=== PATIENT | female | born 1940 | race Caucasian/White ===

== ENCOUNTER 2016-07-31 11:24 | Emergency (ER) | payer BC ==
[~2016-07-31] VITALS: Wt 62.5 kg
[~2016-07-31 11:24] MED LIST: BENA40TA41 PO; HYD25 PO
--- NOTE | 2016-07-31 13:13 | RADRPT ---
PROCEDURE: CT Brain without. CLINICAL INDICATION: Headache. TECHNIQUE: A CT of the brain was performed on multidetector high-resolution CT scanner utilizing a xial sections from the skull base through the vertex without contrast. The scan was reviewed in sof t tissue brain and high frequency resolution bone algorithm windows. Images were reviewed on a high -resolution PACS workstation. One or more the following does reduction techniques were utilized: Aut omated exposure control, adjustment of the mA/ or kV according to patient's size, or use of iterativ e reconstruction technique. The exam CTDI = 44.90 mGy and the DLP = 630.2 mGy-cm. COMPARISON: None available. FINDINGS: The ventricles and sulci are mildly prominent indicative of volume loss. There is no intracranial he morrhage, mass effect or midline shift. No abnormal intra-axial or extra-axial fluid collections ar e seen. The ivory/white matter differentiation is preserved. There are mild scattered foci of hypoattenuation in the white matter, which are nonspecific in etiol ogy but likely reflect chronic small vessel ischemic changes. Small focal probable old lacunar infar ct is noted in the anterior limb of the right internal capsule. There are mild intracranial vascular calcifications consistent with atherosclerosis. The visualized paranasal sinuses are essentially cl ear. IMPRESSION: 1. No acute intracranial hemorrhage, transcortical infarction or mass effect. 2. Mild intracranial atherosclerosis and chronic small vessel ischemic changes. 3. Small focal probable old lacunar infarct in the anterior limb of the right internal capsule. 4. Mild generalized cerebral volume loss. RPTAT: UU .Carson Jin MD, MD Date Time Electronically viewed and signed by .Carson Jin MD, MD on 07/31/2016 13:13 .N/
[2016-07-31] MEDS ORDERED: MINE3.5O30 LEFT EYE (13:33)
--- NOTE | 2016-07-31 13:39 | ERD ---
ER Documentation Chief Complaint Date/Time DATE: 07/31/16 TIME: 13:36 Chief Complaint REDNESS ON EYES, ELEVATED BP, DIZZINESS, NUMBNESS, NO WEAKNESS HPI 75-year-old female noticed some redness in her left eye today. She also complained of dizziness and pain on the left side of her face after noticing it. She denies any weakness, vomiting, visual changes, bowel bladder incontinence, chest pain or shortness of breath. Patient has a history of high blood pressure. She presents with her daughter. ROS All systems reviewed and are negative except as per history of present illness. Medications Home Meds Active Scripts Mineral Oil/Petrolatum,White (ARTIFICIAL TEARS EYE OINT) 3.5 Gm Oint...g., 1 APPLIC LEFT EYE NEEDED Y for DRY EYES for 14 Days, #1 EA Prov:AVRIL CRUZ MD 07/31/16 Reported Medications Benazepril Hcl* (Benazepril Hcl*) 40 Mg Tablet, 40 MG PO DAILY, #30 TAB 07/25/15 Hydrochlorothiazide* (Hydrochlorothiazide*) 25 Mg Tab, 25 MG PO DAILY, #30 TAB 07/25/15 Allergies Allergies: Coded Allergies: No Known Allergy (Unverified , 07/25/15) PMhx/Soc History of Surgery: Yes (bilateral KNEE SX) Anesthesia Reaction: No Hx Neurological Disorder: No Hx Respiratory Disorders: No Hx Cardiac Disorders: No Hx Psychiatric Problems: No Hx Miscellaneous Medical Probl: No Hx Alcohol Use: No Hx Substance Use: No Hx Tobacco Use: No Smoking Status: Never smoker Physical Exam Vitals Vital Signs Date Time Temp Pulse Resp B/P Pulse Ox O2 Delivery O2 Flow Rate FiO2 07/31/16 11:28 98.3 91 17 176/81 99 Physical Exam Const: [] Alert, [id number]. Head: Atraumatic Eyes: There is a left eye subconjunctival hemorrhage in the inferior lateral aspect. Eyes are PERRLA and extraocular movements intact and no proptosis or abnormal eye movements. ENT: Normal External Ears, Nose and Mouth. Neck: Full range of motion..~ No meningismus. Resp: Clear to auscultation bilaterally Cardio: Regular rate and rhythm, no murmurs Abd: Soft, non tender, non distended. Normal bowel sounds Skin: No petechiae or rashes Back: No midline or flank tenderness Ext: No cyanosis, or edema Neur: Awake and alert Psych: Normal Mood and Affect Procedures/MDM Patient presents with a left subconjunctival hemorrhage. She given her other symptoms to CT brain was performed which showed no acute findings. Discussion with daughter and patient suggests that she was feeling anxious which may be exacerbated additional symptoms upon thinking that she was having a stroke. Patient has no evidence of chest pain, shortness breath or neurologic findings. Patient will be treated with artificial tears and further observation EKG: Rate/Rhythm: [Normal Sinus Rhythm] rate equals 88 QRS, ST, T-waves: [No changes consistent w/ acute ischemia] Impression: [No evidence of ischemia or arrhythmia]. Impression-no acute findings on EKG Patient has elevated blood pressure as well but is taking her blood pressure medicine by report. She will be discharged home instructions for blood pressure follow-up and adjustment of medications if necessary. Patient shows no signs or symptoms to suggest endorgan damage or hypertensive emergency Departure Diagnosis: Primary Impression: Subconjunctival edema of left eye Additional Impression: Hypertension Condition: Stable Patient Instructions: Hypertension, Established, Subconjunctival Hemorrhage Additional Instructions: No acute findings today. See primary doctor for follow-up or for new or worsening symptoms. Recheck blood pressure with primary doctor. AVRIL CRUZ MD Jul 31, 2016 13:39
[2016-07-31 14:01] VITALS: BP 162/75; PULSE 79; RESP 18; TEMP 98.1
== END 2016-07-31 14:02 | disposition home or self-care (01) ==
LOC: FTE 11:24
DX: H11.422 Conjunctival edema, left eye (principal); I10 Essential (primary) hypertension
CPT/HCPCS: 70450; 93005

== ENCOUNTER → 2016-09-12 | Outpatient (CLI) | payer BC ==
[~2016-09-12] MED LIST changes: +MINE3.5O30 LEFT EYE
== END | disposition home or self-care (01) ==
LOC: HKI 10:12
PROVIDERS: ATTEND Orthopaedic Surgery
DX: M25.562 Pain in left knee (principal); M25.561 Pain in right knee; I10 Essential (primary) hypertension; E78.00 Pure hypercholesterolemia, unspecified; Z96.653 Presence of artificial knee joint, bilateral
CPT/HCPCS: G0463

== ENCOUNTER → 2016-10-01 | Outpatient (CLI) | payer BC ==
--- NOTE | 2016-10-01 17:35 | RADRPT ---
PROCEDURE: Left knee radiographs. CLINICAL INDICATION: Left knee pain. TECHNIQUE: Four views. Weight bearing. Frontal, lateral, oblique, and patellar view. COMPARISON: No prior studies are available for comparison. FINDINGS: There is no fracture or dislocation. There is a small joint effusion. There are degenerative changes with osteophytes arising from all 3 joint compartment margins. There is medial joint compartment narrowing, subarticular sclerosis, and deformity. There is no lytic or blastic lesion. There is no radiopaque foreign body. IMPRESSION: 1. Severe degenerative changes of the left knee predominately involving the medial joint compartmen t. RPTAT: QQ .Mickey Johnson MD, MD Date Time Electronically viewed and signed by .Mickey Johnson MD, MD on 10/01/2016 17:35 .R/
--- NOTE | 2016-10-01 17:40 | RADRPT ---
PROCEDURE: Limited x-ray of both lower extremities. CLINICAL INDICATION: Bilateral leg pain. TECHNIQUE: Single frontal view of both lower extremities was obtained from the hips to the calves. COMPARISON: None. FINDINGS: There are degenerative changes of both hips with mild joint space narrowing and osteophytes. There are degenerative changes of both knees with bilateral medial joint compartment narrowing, subarticul ar sclerosis, and deformity. There is bilateral knee varus deformity. IMPRESSION: 1. Moderate degenerative changes of the hips. 2. Severe degenerative changes of the knees with varus deformity. RPTAT: QQ .Mickey Johnson MD, MD Date Time Electronically viewed and signed by .Mickey Johnson MD, MD on 10/01/2016 17:40 .R/
== END | disposition home or self-care (01) ==
LOC: HKI 10:21
PROVIDERS: ATTEND Orthopaedic Surgery
DX: M25.561 Pain in right knee (principal); M17.0 Bilateral primary osteoarthritis of knee
CPT/HCPCS: 73564; 77073; 87081; Z7500; G0463

== ENCOUNTER 2016-10-07 12:16 | Inpatient (IN) | payer BC ==
[~2016-10-07] VITALS: Ht 157.5 cm; Wt 57.0 kg
[2016-10-07] VITALS (27 sets, daily range): BP systolic 134–181; BP diastolic 59–88; PULSE 73–134; RESP 11–25; Ht 157.5 cm; Wt 57.0 kg
[2016-10-07] MEDS: traMADol 50 MG TAB PO SCH ×3 (12:00→23:35)
[~2016-10-07 12:16] MED LIST changes: +DESFLURANE 15 MIN ONE
[2016-10-07] MEDS ORDERED: oxyCODONE (CR) 10 MG TAB [oxyCONTIN] X1 DOSE PO SCH ×2 (13:38→15:00)
[2016-10-07] MEDS ORDERED: CEFAZOLIN 2GM/50 ML (PMX) 50 ML X1 BEFORE INCISION IVPB SCH ×2 (13:38→15:00)
[2016-10-07] MEDS ORDERED: CELECOXIB 400 MG PO X1 DOSE PO SCH ×2 (13:40→15:00)
[2016-10-07] MEDS ORDERED: PREGABALIN 300 MG PO X1 PO SCH ×2 (13:41→15:00)
[2016-10-07] MEDS ORDERED: traMADOL 50 MG TAB X 1 DOSE PO SCH ×2 (13:42→15:00)
[2016-10-07] MEDS ORDERED: ONDANSETRON 4 MG IV X 1 DOSE IV SCH ×2 (13:43→15:00)
[2016-10-07] MEDS ORDERED: NEOSTIGMINE 3 MG/3 ML SYRINGE ONE (13:58)
[2016-10-07] MEDS ORDERED: DEXAMETHASONE 4 MG/ML 1 ML INJ ONE (13:58)
[2016-10-07] MEDS ORDERED: MIDAZOLAM 1 MG/ML 2 ML INJ ONE (13:58)
[2016-10-07] MEDS ORDERED: ROCURONIUM 50 MG INJ ONE (13:58)
[2016-10-07] MEDS ORDERED: ONDANSETRON 4 MG INJ ONE ×2 (13:58→14:04)
[2016-10-07] MEDS ORDERED: FENTAnyl 50 MCG/ML VIAL ONE (13:58)
[2016-10-07] MEDS ORDERED: GLYCOPYRROLATE 0.4 MG INJ ONE (13:58)
[2016-10-07] MEDS ORDERED: CEFAZOLIN 1 GM INJ ONE (13:58)
[2016-10-07] MEDS ORDERED: PROPOFOL 20 ML ONE (13:58)
[2016-10-07] MEDS ORDERED: PROPOFOL 100 ML ONE (13:59)
[2016-10-07] MEDS ORDERED: ETOMIDATE 20 MG INJ ONE (13:59)
[2016-10-07] MEDS ORDERED: LACTATED RINGER'S 1,000 ML IV SCH (15:00)
[2016-10-07] MEDS ORDERED: TRANEXAMIC ACID 590 MG in SOD CHLORIDE 0.9% 94.1 ML IV SCH (15:00)
[2016-10-07] MEDS ORDERED: EXPAREL NOTE (BUPIVICAINE LIPOSOMAL) XX SCH (15:00)
[2016-10-07] MEDS ORDERED: TRANEXAMIC ACID 590 MG in SOD CHLORIDE 0.9% 100 ML IVPB SCH (15:00)
[2016-10-07] MEDS ORDERED: BUPIVACAINE LIPOSOME/PF 266 MG/20 ML VIAL INFIL SCH (15:00)
[2016-10-07] MEDS ORDERED: PAIN COCKTAIL-CEFUROXIME IRR SCH ×7 (15:00)
[2016-10-07] MEDS ORDERED: BACITRACIN 50000 UNITS INJ ONE (15:10)
[2016-10-07] MEDS ORDERED: VANCOMYCIN 1 GM INJ ONE (15:39)
[2016-10-07] MEDS ORDERED: POLYMYXIN B 500000 UNIT INJ ONE (15:39)
[2016-10-07] MEDS ORDERED: SODIUM CL BACTERIOSTATIC 30 ML INJ ONE (15:39)
--- NOTE | 2016-10-07 15:39 | HPN ---
Date/Time of Note Date/Time of Note DATE: 10/07/16 TIME: 15:38 Interval H&P Admission Note Pt. seen H&P reviewed: No system changes No changes from H&P on 09/30/16 by NHUNG Kauffman MD Oct 07, 2016 15:39
[2016-10-07] MEDS ORDERED: ONDANSETRON 4 MG INJ IV PRN ×2 (16:30→18:30)
[2016-10-07] MEDS ORDERED: IPRATROPIUM (NEB) 0.5 MG/2.5 ML AMP HHN PRN (16:30)
[2016-10-07] MEDS ORDERED: OXYCODONE/ACETAMINOPHEN (5/325) TAB PO PRN ×2 (16:30)
[2016-10-07] MEDS ORDERED: TRIMETHOBENZAMIDE 100 MG/ML VIAL IM PRN (16:30)
[2016-10-07] MEDS ORDERED: DIPHENHYDRAMINE 50 MG INJ IV PRN (16:30)
[2016-10-07] MEDS ORDERED: FENTAnyl 50 MCG/ML VIAL IV PRN ×3 (16:30)
[2016-10-07] MEDS ORDERED: HYDROmorphONE (0.2 MG/ML) 10ML SYG IV PRN ×3 (16:30)
[2016-10-07] MEDS ORDERED: ALBUTEROL 0.083% (NEB) 2.5 MG/3 ML AMP HHN PRN (16:30)
[2016-10-07] MEDS ORDERED: hydrALAzine 20 MG INJ IV PRN (16:30)
[2016-10-07] MEDS ORDERED: LABETALOL HCL 20MG INJ IV PRN (16:30)
[2016-10-07] MEDS ORDERED: EPHEDrine SULFATE 50 MG/5 ML SYG IV PRN (16:30)
[2016-10-07] MEDS ORDERED: MEPERIDINE 25 MG INJ IV PRN (16:30)
[2016-10-07] MEDS ORDERED: MIDAZOLAM 1 MG/ML 2 ML INJ IV PRN (16:30)
[2016-10-07] MEDS ORDERED: SUGAMMADEX SODIUM 200 MG/2 ML VIAL IV ONE (17:50)
[2016-10-07] MEDS: LACTATED RINGER'S 1,000 ML IV SCH (18:12)
--- NOTE | 2016-10-07 18:15 | OPR ---
Date/Time of Note Date/Time of Note DATE: 10/07/16 TIME: 18:12 Operative Report Procedure Description DATE: 10/07/2016 PREOPERATIVE DIAGNOSIS: Left knee osteoarthritis POSTOPERATIVE DIAGNOSIS: Left knee osteoarthritis OPERATION PERFORMED: Left total knee arthroplasty. SURGEON: Nhung Deng MD SALES [employer]PERATIONS DIRECTOR: Nathan Dewey PA-C COMPONENTS USED: Depuy Attune size 5 narrow femoral component, size 4 tibial baseplate, 6 mm polyethylene insert, 35 patellar button ANESTHESIA: Spinal plus general endotracheal intubation, plus periarticular injection ANESTHESIOLOGIST: Zaire Monsivais M.D. TOURNIQUET TIME: 52 minutes. ESTIMATED BLOOD LOSS: 50 cc INTRAVENOUS FLUIDS: 2,000 cc crystalloid SPECIMENS: Bone and soft tissue. DRAINS: Hemovac x1. COMPLICATIONS: None. DISPOSITION: The patient tolerated the procedure well and was taken to the recovery room in stable condition. INDICATIONS: The patient is a 76-year-old woman who has had progressively worsening pain in the left knee with radiographic evidence of severe osteoarthritis. She has failed nonsurgical means of treatment to address her pain including activity modifications, pain medications, intra-articular injections, and ambulatory assist devices. Despite these measures she has had worsening pain. I felt the patient would benefit from a total knee arthroplasty. The risks, benefits, and alternatives of the procedure were explained in detail to the patient. I explained the risks of the surgery to include but not be limited to, bleeding and possible need for blood transfusion; infection; pain; stiffness; neurovascular injury with possible numbness, weakness, and/or paralysis anywhere from the knee down to the toes; fracture; instability; dislocation; wear and/or loosening of the prosthesis and possible need for future revision; blood clots; pulmonary embolism; and anesthetic complications such as heart attack, stroke, GI bleed, pneumonia, and/or . Ample time was allowed for the patient to ask questions, all of which were addressed and answered. The patient understood the risks involved and wished to proceed. Informed consent was signed prior to the procedure. PROCEDURE: The patient's left knee was initialed with a marking pen in the preoperative area to identify the correct operative site. The patient was brought to the operating room and transferred from the [facility] to the operating table where a spinal anesthetic was administered. The patient was then anesthetized and intubated. A [place] catheter was placed. A timeout was performed to confirm that the left leg was the correct operative site. The patient was given 2 g of Ancef within one hour prior to the procedure. A tourniquet was placed on the operative proximal thigh. The operative knee and lower extremity were prepped and draped in the usual sterile fashion. The operative lower extremity was elevated and exsanguinated with an Esmarch tourniquet. The proximal thigh tourniquet was inflated to 300 mmHg. The knee was flexed. A midline incision was made and carried down through the subcutaneous tissue and fat with sharp dissection. Limited medial and lateral flaps were raised. A medium parapatellar approach was performed. Synovial fluid was normal in color and consistency. The patella was everted and the knee flexed. There were severe tricompartmental osteoarthritic changes noted. A medial release was performed at the joint line to the midcoronal plane. The ACL and PCL and remnants of the menisci were excised. The stepped drill was used to open up the femoral canal which was irrigated and sucked dry. The intramedullary guide sylvie was passed up the femur, and the distal cutting block was pinned into place for a 6 degree valgus cut, taking 10 mm of bone off distally. The oscillating saw was used to make the cut. The tibia was subluxed anteriorly. The tibial cutoff jig was placed over the center of the talus distally and over the junction of the medial and middle third of the tibial tubercle proximally. The guide was pinned into place and the oscillating saw was used to make the cut. The tibia was sized. The extension gap was checked and accommodated a 6 mm spacer block with the knee in full extension. There was no varus or valgus instability. At this point, the femur was sized with the posterior referencing guide. Two holes were drilled in 3 degrees of external rotation. The two holes were in line with the transepicondylar axis, perpendicular to [place]'s line, and in line with the tibial cutoff jig brought up with the knee flexed 90 degrees and tensed with 2 lamina spreaders, suggesting the femoral rotation was correct. The four-in-one cutting block was pinned into place. The anterior and posterior cuts and chamfer cuts were made with the oscillating saw. The flexion gap was checked and accommodated the 6 mm spacer block at 90 degrees. There was no varus or valgus instability, suggesting the flexion and extension gaps were now equal. The central box was cut out on the femur. The tibia was drilled and punched in proper rotation. Trial components were placed into position with a trial insert. The patella was cut down to 13 mm and sized. Three holes were drilled and the trial button placed in position. With all the trials now in place, the knee was taken through range of motion and came to full extension as evidenced by the fact that with the foot on my abdomen and axial loading, there was no tendency for the knee to flex. The knee was able to be flexed to 125 degrees with good patellar tracking with no lateral tilt or subluxation. At this point, I was satisfied with the overall range of motion, stability, and patellar tracking. The trials were removed. The real components were opened. Two bags of cement were mixed, one with and one without premixed antibiotic. The knee was irrigated with antibiotic saline and sucked dry. Once the cement was in a doughy stage, the real components were cemented into place. The knee was held in full extension, and the patellar component was held with a patellar clamp. All excess cement was removed with curettes. As the cement was hardening, the synovial/capsular layer was infiltrated with a mixture of 150 mg of 0.5% Bupivacaine, 8 mg of Duramorph, 300 mcg of epinephrine, 30 mg of Toradol, 100 mcg of clonidine, 750 mg of cefuroxime and 86 mL of normal saline, followed by an injection of 266 mg of liposomal Bupivacaine. A Hemovac drain was placed in the deep portion of the wound and brought out the anterolateral thigh. Once the cement was completely hardened, the trial liner was removed, and the real insert was opened. The tourniquet was let down, and there was good hemostasis. The knee was then irrigated with a mixture of betadine/saline and then antibiotic saline with pulsatile lavage. The real insert was impacted into the tibia and reduced onto to the femur. The arthrotomy was closed with a few interrupted #1 Ethibond in a figure-of- eight fashion, and then closed in a watertight fashion with a running #2 Stratafix suture. Knee flexion was checked against gravity and came to 125 degrees. The subcutaneous layer was irrigated and closed with 2-0 Statafix, and then 3-0 Vicryl and then vince on the skin. The wound was covered with an occlusive dressing, and secured with cast padding and a bias dressing. The drain was secured with 3-0 nylon. The sponge and needle counts were correct at the end of the case. The patient was then awakened, extubated, and taken to the recovery room in stable condition. NHUNG DENG MD Oct 07, 2016 18:15
--- NOTE | 2016-10-07 18:28 | PN ---
Date/Time of Note Date/Time of Note DATE: 10/07/16 TIME: 18:26 Assessment/Plan Lines/Catheters IV Catheter Type (from Nrsg): Peripheral IV Assessment/Plan Assessment/Plan Stable in PACU, s/p left TKA -continue Ancef -pain meds as needed -ASA/SCDs -OOB with PT -monitor drain -check AM labs -d/c erwin in AM XR of the left knee is pending at this time Subjective 24 Hr Interval Summary Stable in PACU. Denies pain. Drowsy from anesthesia. Moving all extremities. Exam/Review of Systems Vital Signs Vitals Vital Signs Date Time Temp Pulse Resp B/P Pulse Ox O2 Delivery O2 Flow Rate FiO2 10/07/16 14:02 97.7 85 18 143/76 98 Room Air Exam Free Text/Dictation Hemovac: minimal Dressing dry Incision clean, dry, and intact without redness or drainage Thigh soft 5/5 Quadriceps, Tibialis Anterior, EHL, Gastroc, Soleus, Peroneals Normal sensation Palpable DT/PT, CR <2 sec No distal edema BRANDON LIVINGSTON PA-C Oct 07, 2016 18:27
[2016-10-07] MEDS ORDERED: CELECOXIB 200 MG CAP PO SCH (18:30)
[2016-10-07] MEDS ORDERED: PREGABALIN 100 MG CAP PO SCH (18:30)
[2016-10-07] MEDS ORDERED: traMADol 50 MG TAB PO SCH (18:30)
[2016-10-07] MEDS ORDERED: CEFAZOLIN 2 GM/50 ML (PMX) 50 ML IVPB SCH (18:30)
[2016-10-07] MEDS ORDERED: NA PHOSPHATE/BIPHOS 133 ML ENEMA PR PRN (18:30)
[2016-10-07] MEDS ORDERED: ONDANSETRON 4 MG INJ IV SCH (18:30)
[2016-10-07] MEDS ORDERED: DIPHENHYDRAMINE 25 MG CAP PO PRN (18:30)
[2016-10-07] MEDS ORDERED: HYDROCODONE/APAP (7.5/325) TAB PO PRN (18:30)
[2016-10-07] MEDS ORDERED: BISACODYL 10 MG SUPP PR PRN (18:30)
[2016-10-07] MEDS ORDERED: NACL 0.9% 3 ML SYG IV SCH (18:30)
[2016-10-07] MEDS ORDERED: HYDROmorphONE 1 MG/ML SYG IV PRN (18:30)
[2016-10-07] MEDS ORDERED: oxyCODONE (CR) 10 MG TAB [oxyCONTIN] PO SCH (18:30)
[2016-10-07] MEDS ORDERED: ASPIRIN (EC) 325 MG TAB PO ONE (18:30)
[2016-10-07 18:34] LABS: HEMATOCRIT 30.7 % (37.0-47.0); HEMOGLOBIN 10.2 g/dl (12.0-16.0)
[2016-10-07 18:49] LABS: ADD UMIC YES; UR ASCORBIC ACID NEGATIVE (NEGATIVE); UR BILIRUBIN (Dip) NEGATIVE (NEGATIVE); UR BLOOD (Dip) 1+ mg/dL (NEGATIVE); UR CLARITY CLEAR (CLEAR); UR COLOR YELLOW (YELLOW); UR GLUCOSE (Dip) NEGATIVE (NEGATIVE); UR KETONES (Dip) NEGATIVE (NEGATIVE); UR LEUKOCYTE ESTERASE (Dip) NEGATIVE Leu/ul (NEGATIVE); UR NITRITE (Dip) NEGATIVE (NEGATIVE); UR RBC 7 /HPF (0-5); UR SPECIFIC GRAVITY (Dip) 1.017 (1.003-1.030); UR TOTAL PROTEIN (Dip) 1+ mg/dl (NEGATIVE); UR UROBILINOGEN (Dip) NEGATIVE (NEGATIVE)
--- NOTE | 2016-10-07 18:58 | RADRPT ---
PROCEDURE: XR Knee. CLINICAL INDICATION: Postop TECHNIQUE: AP and lateral views of the left knee are available for review. COMPARISON: None available FINDINGS: A cemented left total knee arthroplasty is present in near anatomic alignment without acute radiogra phic abnormality. Recent surgical changes seen in the soft tissues. IMPRESSION: 1. Total knee arthroplasty in near anatomic alignment without acute radiographic abnormality RPTAT: UU .Parmjit Shipley MD, MD Date Time Electronically viewed and signed by .Parmjit Shipley MD, on 10/07/2016 18:57 .d/
[2016-10-07 19:02] LABS: CALCIUM 8.9 mg/dl (8.4-10.2); CREATININE 0.94 mg/dl (0.44-1.00)
[2016-10-07] MEDS ORDERED: POTASSIUM CHLORIDE (SR) 20 MEQ TAB PO STA (19:05)
[2016-10-07] MEDS: CEFAZOLIN 2 GM/50 ML (PMX) 50 ML IVPB SCH (19:34)
[2016-10-07] MEDS: ASPIRIN (EC) 325 MG TAB PO SCH (19:35)
[2016-10-07] MEDS ORDERED: TRANEXAMIC ACID 570 MG in SOD CHLORIDE 0.9% 100 ML IVPB ONE (21:30)
[2016-10-07] MEDS: DOCUSATE SODIUM 100 MG CAP PO SCH (22:03)
[2016-10-07] MEDS: PREGABALIN 50 MG CAP PO SCH (22:03)
[2016-10-08 00:18] VITALS: BP 134/63; RESP 18
[2016-10-08 00:30] VITALS: BP 132/63; PULSE 72; RESP 16
[2016-10-08] MEDS ORDERED: TRANEXAMIC ACID 570 MG in SOD CHLORIDE 0.9% 100 ML IVPB ONE (00:30)
[2016-10-08] MEDS: LACTATED RINGER'S 1,000 ML IV SCH ×3 (01:18→18:12)
[2016-10-08] MEDS: CEFAZOLIN 2 GM/50 ML (PMX) 50 ML IVPB SCH ×2 (03:02→12:12)
[2016-10-08 04:14] VITALS: BP 135/60; RESP 18
[2016-10-08 05:15] LABS: HEMATOCRIT 29.1 % (37.0-47.0); HEMOGLOBIN 9.4 g/dl (12.0-16.0)
[2016-10-08 05:45] LABS: CALCIUM 8.9 mg/dl (8.4-10.2); CREATININE 0.87 mg/dl (0.44-1.00); POTASSIUM 4.1 mmol/L (3.5-5.1)
[2016-10-08] MEDS: PANTOPRAZOLE (EC) 40 MG TAB PO SCH ×2 (05:55→17:43)
[2016-10-08] MEDS: traMADol 50 MG TAB PO SCH ×3 (05:55→17:43)
--- NOTE | 2016-10-08 07:21 | PDOCDIS ---
Discharge Instructions DIAGNOSIS Discharge Diagnosis s/p left TKA CONDITION Patient Condition: Good HOME CARE INSTRUCTIONS: Diet Instructions: Regular ACTIVITY: Activity Restrictions: Slowly Increase Activity Rest between Activity Avoid heavy lifting Do not operate Machinery Do not operate Power Tool Avoid Heavy Housework Keep Limb Elevated Bathing Restrictions: Shower FOLLOW UP/APPOINTMENTS Follow-up Plan follow up in the office on 10/17/16 OTHER ORDERS: Other Orders: S/P TKA Physical Therapy: Three times per week at home x 2 weeks Daily in Rehab/SNF WB STATUS: WBAT 1. Strengthening exercises for both upper and un-operated lower extremities. 2. Gait training with front wheeled walker 3. Active range of motion exercises to operative knee. 4. When not working on knee range of motion exercises, distal towel roll under operative ankle/distal calf to promote full extension. 5. DO NOT PUT ANYTHING BEHIND OPERATIVE KNEE!!! 6. Quadriceps and hamstring strengthening. 7. May switch to cane in contra lateral hand 6 weeks after surgery. 8. Physical Therapy can open case if nursing is not available. 9. Use Ice Machine as instructed from date of surgery while at rest 3X/day. 10. Patient requires mobile SCDs to reduce risk of developing DVT following TKA. Patient will use the mobile SCDs for 30 days postoperatively. Bathing assistance by home health aide twice weekly if Medicare patient. Occupational Therapy: Evaluation for assistive devices and ADL training. Wound Care: Keep incision dry & covered with Tegaderm until first visit with Dr. Ozuna Anticoagulation Orders: Enteric Coated Aspirin 325 mg po bid x 6 weeks from date of surgery Follow-up:Call for an appointment with Dr. Ozuna in 1 week after discharged from hospital at DME Orders: FWAdina, 3-in-1 Commode, Polar ice machine, Mobile SCDs BRANDON LIVINGSTON PA-C Oct 08, 2016 07:21
[2016-10-08] MEDS ORDERED: ASPI325T32 PO (07:23)
[2016-10-08] MEDS ORDERED: PANT40TA4 PO (07:23)
[2016-10-08] MEDS ORDERED: PREG50CA PO (07:23)
[2016-10-08] MEDS ORDERED: TRAM50TA2 PO (07:23)
[2016-10-08] MEDS ORDERED: HYDR-3605 PO (07:23)
[2016-10-08 07:31] VITALS: BP 140/68; RESP 18
--- NOTE | 2016-10-08 08:35 | PN ---
Date/Time of Note Date/Time of Note DATE: 10/08/16 TIME: 08:34 Assessment/Plan Lines/Catheters IV Catheter Type (from Nrsg): Peripheral IV Spain in Place (from Nrsg): Yes Assessment/Plan Assessment/Plan Stable POD #1, s/p left TKA -d/c Ancef -pain meds as needed -ASA/SCDs -OOB with PT -drain removed -check AM labs -d/c planning. Will plan to go home upon discharge Subjective 24 Hr Interval Summary No acute overnight events. Denies significant pain. H&H stable. VSS, afebrile. Will plan to go home upon discharge. Exam/Review of Systems Vital Signs Vitals Vital Signs Date Time Temp Pulse Resp B/P Pulse Ox O2 Delivery O2 Flow Rate FiO2 10/08/16 07:31 97.7 70 18 140/68 100 10/08/16 00:30 Nasal Cannula 2.0 Intake and Output 10/07/16 10/07/16 10/08/16 14:59 22:59 06:59 Intake Total 2240 ml 1662 ml Output Total 550 ml 1000 ml Balance 1690 ml 662 ml Exam Free Text/Dictation Hemovac: 150cc Dressing dry Incision clean, dry, and intact without redness or drainage Thigh soft 5/5 Quadriceps, Tibialis Anterior, EHL, Gastroc, Soleus, Peroneals Normal sensation Palpable DT/PT, CR <2 sec No distal edema Results Result Diagram: 10/08/1643010/08/16430 BRANDON LIVINGSTON PA-C Oct 08, 2016 08:35
[2016-10-08] MEDS: DOCUSATE SODIUM 100 MG CAP PO SCH ×2 (08:36→20:03)
[2016-10-08] MEDS: HYDROCHLOROTHIAZIDE 25 MG TAB PO SCH (08:36)
[2016-10-08] MEDS: BENAZEPRIL 40 MG TAB PO SCH (08:37)
[2016-10-08] MEDS: PREGABALIN 50 MG CAP PO SCH ×2 (08:37→20:04)
[2016-10-08 09:31] LABS: ADD UMIC YES; UR ASCORBIC ACID NEGATIVE (NEGATIVE); UR BACTERIA FEW /HPF (NONE SEEN); UR BILIRUBIN (Dip) NEGATIVE (NEGATIVE); UR BLOOD (Dip) 2+ mg/dL (NEGATIVE); UR CLARITY CLEAR (CLEAR); UR COLOR STRAW (YELLOW); UR GLUCOSE (Dip) NEGATIVE (NEGATIVE); UR KETONES (Dip) NEGATIVE (NEGATIVE); UR LEUKOCYTE ESTERASE (Dip) NEGATIVE Leu/ul (NEGATIVE); UR NITRITE (Dip) NEGATIVE (NEGATIVE); UR RBC 5 /HPF (0-5); UR SPECIFIC GRAVITY (Dip) 1.008 (1.003-1.030); UR TOTAL PROTEIN (Dip) NEGATIVE (NEGATIVE); UR UROBILINOGEN (Dip) NEGATIVE (NEGATIVE)
--- NOTE | 2016-10-08 11:38 | CONS ---
Date/Time of Note Date/Time of Note DATE: 10/08/16 TIME: 11:28 Assessment/Plan Assessment/Plan Chief Complaint/Hosp Course 1. Osteoarthritis, status post left total knee arthroplasty, POD #1. -Postoperative antibiotics, pain control and anticoagulation per surgery. 2. Essential hypertension. Stable. -Continue current antihypertensives. 3. Dyslipidemia. -On statin. Obtain LFTs for baseline. 4. Systolic murmur. Rule out valvular disorders. Of note, patient denied any history of cardiac valve disorders. -Obtain 2D echocardiogram and consider cardiology consult if indicated. -Obtain 12-lead EKG. 5. Anemia, chronic versus postoperative. -Obtain iron panel and treat accordingly. No indication for transfusion as H&H remained stable at this time. Plan: Follow-up with 2D echocardiogram and consider cardiology if indicated. We will also proceed with baseline labs including TSH, A1c, lipid panel and liver function tests. Continue current antihypertensive regimen and adjust dose as indicated. Thank you for allowing us to partake in the care of this pleasant lady. If you have any questions, please call us at extension [phone]. Approximately 60 minutes was spent on this consultation. Case discussed with Dr. Feliciano Problems: Consultation Date/Type/Reason Admit Date/Time Oct 07, 2016 at 12:16 Hx of Present Illness This is a 76-year-old female with a past medical history of hypertension, dyslipidemia, knee osteoarthritis, hysterectomy who was admitted for elective left total knee arthroplasty and hospitalist was consulted for internal medicine management. Patient is postop day #1. She denied chest pain, palpitation, shortness of breath, nausea, vomiting, abdominal pain or any bleeding symptoms. Pain is controlled at this time. No fever or chills. Available labs showed hemoglobin 9.4, hematocrit 29.1. BMP within acceptable range. Urine analysis negative for any infection. Vital signs with blood pressure 140/68 within acceptable range. A 12 point review of system was assessed and is negative other than what is mentioned in HPI. Past Medical History See HPI Past Surgical History See HPI Social History See HPI Smoking Status: Never smoker Exam/Review of Systems Vital Signs Vitals Vital Signs Date Time Temp Pulse Resp B/P Pulse Ox O2 Delivery O2 Flow Rate FiO2 10/08/16 07:31 97.7 70 18 140/68 100 10/08/16 00:30 Nasal Cannula 2.0 Intake and Output 8/10/1610/07/16 10/08/16 15:00 23:00 07:00 Intake Total 2340 ml 1562 ml Output Total 550 ml 1000 ml Balance 1790 ml 562 ml Exam General: Well developed,adequately built, not in any acute distress . HEENT: Normocephalic, Atraumatic, No laceration or hematoma; Eyes: PEERL, Conjunctiva clear, Anicteric sclera Neck: Supple without any lymphadenopathy, nontender, no JVD, no carotid bruits, trachea midline, no thyromegaly Cardiac: SSystolic murmur grade V/ heard at right and left second ICS and mid clavicular line. regular rhythm and rate Pulmonary: Normal respiratory effort. Chest clear to auscultation bilaterally, no adventitious breath sounds GI: Abdomen normal to inspection. Soft, non tender, non- distended, no masses, no rebound tenderness or guarding. Bowel sounds active on all four quadrants Genitourinary: Deferred Extremities: Left knee with dressing intact. No cyanosis, clubbing, or edema. Pulses [2+] bilaterally. Range of motion decreased on left lower extremity. No focal weakness appreciated. Neurologic: Alert to person, place, time, and situation. Affect appropriate, intact sensation. Skin: Clean,dry, and intact. No ecchymosis, no rashes, or lesions Results Result Diagram: 10/08/16 0431 10/08/16 0431 Results 24 hrs Laboratory Tests Test 10/07/16 18:11 10/07/16 18:22 10/08/16 04:31 10/08/16 06:15 Urine Color YELLOW STRAW Urine Clarity CLEAR CLEAR Urine pH 5.0 6.0 Urine Specific [place] 1.017 1.008 Urine Ketones NEGATIVE NEGATIVE Urine Nitrite NEGATIVE NEGATIVE Urine Bilirubin NEGATIVE NEGATIVE Urine Urobilinogen NEGATIVE NEGATIVE Urine Leukocyte Esterase NEGATIVE NEGATIVE Urine Microscopic RBC 7 H 5 Urine Microscopic WBC 1 0 Urine Hemoglobin 1+ H 2+ H Urine Glucose NEGATIVE NEGATIVE Urine Total Protein 1+ H NEGATIVE Hemoglobin 10.2 L 9.4 L Hematocrit 30.7 L 29.1 L Sodium Level 143 143 Potassium Level 3.0 L 4.1 Chloride Level 103 100 Carbon Dioxide Level 26 29 Anion Gap 17 H 18 H Blood Urea Nitrogen 14 15 Creatinine 0.94 0.87 Glucose Level 155 156 Calcium Level 8.9 8.9 Urine Bacteria FEW A Medications Medications Current Medications Miscellaneous Information 1 ea NOTE XX ; Start 10/07/16 at 15:00; Stop 10/10/16 at 15:01 Benazepril HCl (Lotensin) 40 mg DAILY PO Last administered on 10/08/16 08:37; Admin Dose 40 MG; Start 10/08/16 at 09:00 Hydrochlorothiazide (Hydrochlorothiazide) 25 mg DAILY PO Last administered on 08:36; Admin Dose 25 MG; Start 10/08/16 at 09:00 Oxycodone HCl (Oxycontin) 10 mg PRE-OP PO ; Start 10/07/16 at 18:30 Pregabalin (Lyrica) 300 mg PRE-OP PO ; Start 10/07/16 at 18:30 Celecoxib (Celebrex) 400 mg PRE-OP PO ; Start 10/07/16 at 18:30 Tramadol HCl (Ultram) 50 mg PRE-OP PO ; Start 10/07/16 at 18:30 Ondansetron HCl 4 mg 4 mg PRE-OP IV Last administered on 10/07/16 20:20; Admin Dose 4 MG; Start 10/07/16 at 18:30 Cefazolin Sodium/ Dextrose 50 ml @ 100 mls/hr PRE-OP IVPB ; Start 10/07/16 at 18 :30 Lactated Ringer's (Lr) 1,000 ml @ 125 mls/hr Q8H IV Last administered on 05:55; Admin Dose 125 MLS/HR; Start 10/07/16 at 18:12 Tramadol HCl (Ultram) 50 mg Q6 PO Last administered on 10/08/16 05:55; Admin Dose 50 MG; Start 10/07/16 at 12:00; Stop 10/10/16 at 11:59 Hydromorphone HCl (Dilaudid) 1 mg Q3H PRN IV PAIN LEVEL 8-10; Start 10/07/16 at 18:30 Ondansetron HCl (Zofran Inj) 4 mg Q6H PRN IV NAUSEA AND/OR VOMITING; Start 10/07 at 18:30 Bisacodyl (Dulcolax Supp) 10 mg Q12H PRN [place] CONSTIPATION; Start 10/07/16 at 18: 30 Magnesium Hydroxide (Milk Of Mag) 30 ml BID PRN PO CONSTIPATION; Start 10/07/16 at 18:30 Sodium Biphosphate/ Sodium Phosphate (Fleet Enema) 133 ml DAILY PRN [place] CONSTIPATION; Start 10/07/16 at 18:30 Docusate Sodium (Colace) 100 mg BID PO Last administered on 10/08/16 08:36; Admin Dose 100 MG; Start 10/07/16 at 21:00 Diphenhydramine HCl (Benadryl) 25 mg Q6H PRN PO PRURITUS; Start 10/07/16 at 18: 30 Acetaminophen/ Hydrocodone Bitart ([place] (7.5-325)) 1 tab Q4H PRN PO PAIN LEVEL 1-3; Start 10/07/16 at 18:30 Acetaminophen/ Hydrocodone Bitart ([place] (7.5-325)) 2 tab Q4H PRN PO PAIN LEVEL 4-7; Start 10/07/16 at 18:30 Aspirin (Ecotrin) 325 mg BID PO Last administered on 10/07/16 19:35; Admin Dose 325 MG; Start 10/08/16 at 09:00 Pantoprazole (Protonix Tab) 40 mg BID@06,18 PO Last administered on 10/08/16 05 :55; Admin Dose 40 MG; Start 10/08/16 at 06:00 Pregabalin 50 mg 50 mg BID PO Last administered on 10/08/16 08:37; Admin Dose 50 MG; Start 10/07/16 at 21:00 Cefazolin Sodium/ Dextrose (Ancef 2 Gm/50 ml (Pmx)) 50 ml @ 100 mls/hr Q8H IVPB Last administered on 10/08/16 03:02; Admin Dose 100 MLS/HR; Start 10/07/16 at 19:30; Stop 10/08/16 at 11:59 GUILLE MARSH NP Oct 08, 2016 11:38
[2016-10-08 15:26] VITALS: BP 121/57; RESP 20
--- NOTE | 2016-10-08 15:49 | RADRPT ---
Echocardiogram Report Patient Name: MATT OROZCO Gender: Female Date: 1940 Study Date: 08-Oct-2016 Wet Process Miller: Marques Colindres [facility] Location: [id number] Ref. Physician: GUILLE MARSH Quality: Adequate Procedures: Transthoracic echocardiogram with complete 2D, M-Mode, and doppler examination. Indications: Rule out MR/AR. Grade V/ left ICS/right ICS. 2D/M Mode Doppler Measurement Value Normal Ranges Measurement Value Normal Ranges LVIDd 2D 3.4 3.5 - 5.6 cm RAE Vmax 0.7 cm2 LVIDs 2D 1.9 2.1 - 4.1 cm RAE VTI 0.7 cm2 LVPWd 2D 0.9 0.6 - 1.1 cm MV E Peak Cale 0.7 m/sec IVSd 2D 1.0 0.6 - 1.1 cm MV A Peak [place]ale 0.9 m/sec AoR Diam 2D 2.8 2.0 - 3.7 cm MV E/A 0.7 EDV 2D 46.1 cm3 MV Decel Time 132 msec ESV 2D 6.6 cm3 MV Decel [place] 5 LA Dimen 2D 3.5 2.3 - 4.0 cm MV E/A 0.7 LVOT Diam 2.0 cm TR Peak [place]ale 2.1 m/sec TR Peak PG 17.8 mmHg RVSP 26.0 mmHg Findings Left Ventricle: Normal left ventricular systolic function. Normal left ventricular cavity size. Normal left ventricular wall thickness. Ejection fraction is visually estimated at 6065 %. Tissue Doppler/Mitral Doppler indices are consistent with impaired relaxation (Stage I diastolic dysfunction). Right Ventricle: Normal right ventricular size. Normal right ventricular systolic function. Left Atrium: The left atrium is normal in size. Right Atrium: The right atrium is normal in size. Mitral Valve: Mitral valve leaflets appear mildly thickened. Mild mitral annular calcification. Trace mitral regurgitation. Aortic Valve: Severe aortic stenosis. Aortic valve Max velocity 4.40 m/sec. Max PG 77.30 mmHg. Mean PG 45.20 mmHg. Aortic valve area 0.90 cm2. Aortic cusps appear severely calcified. No aortic regurgitation. Tricuspid Valve: Normal appearance of the tricuspid valve. Estimated peak PA systolic pressure 26 mmHg. There is mild tricuspid regurgitation. Pulmonic Valve: Pulmonic valve not well visualized. Pericardium: Normal pericardium with no significant pericardial effusion. Aorta: Normal aortic root. IVC: Dilated IVC with respiratory collapse consistent with elevated right atrial pressure. Conclusions 1.Normal left ventricular systolic function. Normal left ventricular cavity size. Normal left ventricular wall thickness. Ejection fraction is visually estimated at 60-65 %. Tissue Doppler/Mitral Doppler indices are consistent with impaired relaxation (Stage I diastolic dysfunction). 2.Mitral valve leaflets appear mildly thickened. Mild mitral annular calcification. Trace mitral regurgitation. 3.Severe aortic stenosis. Aortic valve Max velocity 4.40 m/sec. Max PG 77.30 mmHg. Mean PG 45.20 mmHg. Aortic valve area 0.90 cm2. Aortic cusps appear severely calcified. No aortic regurgitation. 4.Normal appearance of the tricuspid valve. Estimated peak PA systolic pressure 26 mmHg. There is mild tricuspid regurgitation. Electronically Signed By: Cristino Cosme 08-Oct-2016 15:48:20 -0700 Patient Name: MATT OROZCO Study Date: 08-Oct-2016 [id number]
[2016-10-08] MEDS: ASPIRIN (EC) 325 MG TAB PO SCH (20:04)
[2016-10-08] MEDS: HYDROCODONE/APAP (7.5/325) TAB PO PRN (20:07)
[2016-10-08 20:58] VITALS: BP 155/74; RESP 19
[2016-10-09] MEDS: LACTATED RINGER'S 1,000 ML IV SCH ×3 (02:12→15:58)
[2016-10-09 02:40] VITALS: BP 119/72; RESP 20
[2016-10-09 05:12] LABS: HEMATOCRIT 25.7 % (37.0-47.0); HEMOGLOBIN 8.4 g/dl (12.0-16.0)
[2016-10-09] MEDS: PANTOPRAZOLE (EC) 40 MG TAB PO SCH ×2 (05:22→17:35)
[2016-10-09] MEDS: traMADol 50 MG TAB PO SCH ×4 (05:22→17:36)
[2016-10-09 05:40] LABS: ALBUMIN 3.1 g/dl (3.3-4.9); BILIRUBIN,INDIRECT 0.2 mg/dl (0-1.1); BILIRUBIN,TOTAL 0.2 mg/dl (0.2-1.3); IRON 11 ug/dl (35-150); TOTAL PROTEIN 5.7 g/dl (6.1-8.1)
[2016-10-09 05:42] LABS: CALCIUM 8.8 mg/dl (8.4-10.2); CREATININE 0.97 mg/dl (0.44-1.00); POTASSIUM 4.1 mmol/L (3.5-5.1)
[2016-10-09 05:45] LABS: CHOL/HDL RATIO 2.9 RATIO
[2016-10-09 05:49] LABS: TOTAL IRON BINDING CAPACITY 217 ug/dl (241-421)
[2016-10-09 06:10] LABS: THYROID STIMULATING HORMONE 1.6 MIU/L (0.465-4.680)
[2016-10-09 08:45] VITALS: BP 138/61; RESP 16
--- NOTE | 2016-10-09 09:06 | PN ---
Date/Time of Note Date/Time of Note DATE: 10/09/16 TIME: 09:02 Assessment/Plan VTE Prophylaxis VTE Prophylaxis Intervention: SCD's Lines/Catheters IV Catheter Type (from [facility], [place] Saline Lock Urinary Cath still in place: Yes Reason Cath still needed: other (indicate) Assessment/Plan Chief Complaint/Hosp Course 1. Osteoarthritis, status post left total knee arthroplasty, POD #2. -Postoperative antibiotics, pain control and anticoagulation per surgery. 2. Essential hypertension. Stable. -Continue current antihypertensives. 3. Dyslipidemia. -On statin. 4. Severe aortic stenosis. -Obtain cardiology consult and follow-up recommendation. 5. 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 -Start IV iron 3 doses followed by oral iron replacement. No indication for transfusion as H&H remained stable at this time. Plan: Recommend holding DC planning until patient has been evaluated by cardiology. Continue current postoperative management. Thank you for allowing us to partake in the care of this pleasant lady. If you have any questions, please call us at extension [phone]. Case discussed with Dr. Feliciano Problems: Subjective 24 Hr Interval Summary Free Text/Dictation Patient with no acute overnight episodes. Remains afebrile. No chest pain, palpitation, shortness of breath, headache, dizziness or other constitutional symptoms. Exam/Review of Systems Vital Signs Vitals Vital Signs Date Time Temp Pulse Resp B/P Pulse Ox O2 Delivery O2 Flow Rate FiO2 10/09/16 08:45 98.4 87 16 138/61 98 10/08/16 00:30 Nasal Cannula 2.0 Intake and Output 10/08/16 10/08/16 10/09/16 15:00 23:00 07:00 Intake Total 2462 ml 1000 ml Balance 2462 ml 1000 ml Exam General: Well developed,adequately built, not in any acute distress . HEENT: Normocephalic, Atraumatic, No laceration or hematoma; Eyes: PEERL, Conjunctiva clear, Anicteric sclera Neck: Supple without any lymphadenopathy, nontender, no JVD, no carotid bruits, trachea midline, no thyromegaly Cardiac: Systolic murmur grade V/ heard at right and left second ICS and mid clavicular line. regular rhythm and rate Pulmonary: Normal respiratory effort. Chest clear to auscultation bilaterally, no adventitious breath sounds GI: Abdomen normal to inspection. Soft, non tender, non- distended, no masses, no rebound tenderness or guarding. Bowel sounds active on all four quadrants Genitourinary: Deferred Extremities: Left knee with dressing intact. No cyanosis, clubbing, or edema. Pulses [2+] bilaterally. Range of motion decreased on left lower extremity. No focal weakness appreciated. Neurologic: Alert to person, place, time, and situation. Affect appropriate, intact sensation. Skin: Clean,dry, and intact. No ecchymosis, no rashes, or lesions Results Result Diagram: 10/09/16 0432 10/09/16 0432 Results 24 hrs Laboratory Tests Test 10/09/16 04:32 Hemoglobin 8.4 L Hematocrit 25.7 L Sodium Level 141 Potassium Level 4.1 Chloride Level 96 L Carbon Dioxide Level 32 H Anion Gap 17 H Blood Urea Nitrogen 16 Creatinine 0.97 Glucose Level 116 # Hemoglobin A1c 5.2 Calcium Level 8.8 Iron Level 11 L Total Iron Binding Capacity 217 L Percent Iron Saturation 5 L Total Bilirubin 0.2 Direct Bilirubin 0.00 Indirect Bilirubin 0.2 Aspartate Amino Transf (AST/SGOT) 19 Alanine Aminotransferase (ALT/SGPT) 25 Alkaline Phosphatase 39 L Total Protein 5.7 L Albumin 3.1 L Triglycerides Level 97 Cholesterol Level 114 LDL Cholesterol, Calculated 56 HDL Cholesterol 39 Cholesterol/HDL Ratio 2.9 Thyroid Stimulating Hormone (TSH) 1.600 Medications Medications Current Medications Miscellaneous Information 1 ea NOTE XX ; Start 10/07/16 at 15:00; Stop 10/10/16 at 15:01 Benazepril HCl (Lotensin) 40 mg DAILY PO Last administered on 10/08/16 08:37; Admin Dose 40 MG; Start 10/08/16 at 09:00 Hydrochlorothiazide (Hydrochlorothiazide) 25 mg DAILY PO Last administered on 08:36; Admin Dose 25 MG; Start 10/08/16 at 09:00 Oxycodone HCl (Oxycontin) 10 mg PRE-OP PO ; Start 10/07/16 at 18:30 Pregabalin (Lyrica) 300 mg PRE-OP PO ; Start 10/07/16 at 18:30 Celecoxib (Celebrex) 400 mg PRE-OP PO ; Start 10/07/16 at 18:30 Tramadol HCl (Ultram) 50 mg PRE-OP PO ; Start 10/07/16 at 18:30 Ondansetron HCl 4 mg 4 mg PRE-OP IV Last administered on 10/07/16 20:20; Admin Dose 4 MG; Start 10/07/16 at 18:30 Cefazolin Sodium/ Dextrose 50 ml @ 100 mls/hr PRE-OP IVPB ; Start 10/07/16 at 18 :30 Lactated Ringer's (Lr) 1,000 ml @ 125 mls/hr Q8H IV Last administered on 05:55; Admin Dose 125 MLS/HR; Start 10/07/16 at 18:12 Tramadol HCl (Ultram) 50 mg Q6 PO Last administered on 10/09/16 05:22; Admin Dose 50 MG; Start 10/07/16 at 12:00; Stop 10/10/16 at 11:59 Hydromorphone HCl (Dilaudid) 1 mg Q3H PRN IV PAIN LEVEL 8-10; Start 10/07/16 at 18:30 Ondansetron HCl (Zofran Inj) 4 mg Q6H PRN IV NAUSEA AND/OR VOMITING; Start 10/07 at 18:30 Bisacodyl (Dulcolax Supp) 10 mg Q12H PRN [place] CONSTIPATION; Start 10/07/16 at 18: 30 Magnesium Hydroxide (Milk Of Mag) 30 ml BID PRN PO CONSTIPATION; Start 10/07/16 at 18:30 Sodium Biphosphate/ Sodium Phosphate ([place]leet Enema) 133 ml DAILY PRN [place] CONSTIPATION; Start 10/07/16 at 18:30 Docusate Sodium (Colace) 100 mg BID PO Last administered on 10/08/16 20:03; Admin Dose 100 MG; Start 10/07/16 at 21:00 Diphenhydramine HCl (Benadryl) 25 mg Q6H PRN PO PRURITUS; Start 10/07/16 at 18: 30 Acetaminophen/ Hydrocodone Bitart ([place] (7.5-325)) 1 tab Q4H PRN PO PAIN LEVEL 1-3; Start 10/07/16 at 18:30 Acetaminophen/ Hydrocodone Bitart ([place] (7.5-325)) 2 tab Q4H PRN PO PAIN LEVEL 4-7 Last administered on 10/08/16 20:07; Admin Dose 2 TAB; Start 10/07/16 at 18:30 Aspirin (Ecotrin) 325 mg BID PO Last administered on 10/08/16 20:04; Admin Dose 325 MG; Start 10/08/16 at 09:00 Pantoprazole (Protonix Tab) 40 mg BID@,18 PO Last administered on 10/09/16 05:22; Admin Dose 40 MG; Start 10/08/16 at 06:00 Pregabalin (Lyrica) 50 mg BID PO Last administered on 10/08/16 20:04; Admin Dose 50 MG; Start 10/07/16 at 21:00 GUILLE MARSH NP Oct 09, 2016 09:06 GUILLE MARSH NP Oct 09, 2016 09:06
[2016-10-09] MEDS: BENAZEPRIL 40 MG TAB PO SCH (09:08)
[2016-10-09] MEDS: ASPIRIN (EC) 325 MG TAB PO SCH ×2 (09:08→20:46)
[2016-10-09] MEDS: DOCUSATE SODIUM 100 MG CAP PO SCH ×2 (09:08→20:47)
[2016-10-09] MEDS: HYDROCHLOROTHIAZIDE 25 MG TAB PO SCH (09:09)
[2016-10-09] MEDS: HYDROCODONE/APAP (7.5/325) TAB PO PRN (09:16)
[2016-10-09] MEDS: PREGABALIN 50 MG CAP PO SCH ×2 (10:16→20:55)
--- NOTE | 2016-10-09 10:40 | PN ---
Date/Time of Note Date/Time of Note DATE: 10/09/16 TIME: 10:39 Assessment/Plan Lines/Catheters IV Catheter Type (from Nrsg): Saline Lock [place] in Place (from Nrsg): Yes Assessment/Plan Assessment/Plan Stable POD #2, s/p left TKA -pain meds as needed -ASA/SCDs -OOB with PT -dressing changed -check AM labs -plan to d/c home tomorrow Subjective 24 Hr Interval Summary No acute overnight events. Having increased pain today. H&H low but will hold off on transfusion for now. VSS, afebrile. Will plan to go home tomorrow. Exam/Review of Systems Vital Signs Vitals Vital Signs Date Time Temp Pulse Resp B/P Pulse Ox O2 Delivery O2 Flow Rate FiO2 10/09/16 08:45 98.4 87 16 138/61 98 10/08/16 00:30 Nasal Cannula 2.0 Intake and Output 10/08/16 10/08/16 10/09/16 15:00 23:00 07:00 Intake Total 2462 ml 1000 ml Balance 2462 ml 1000 ml Exam Free Text/Dictation Dressing dry Incision clean, dry, and intact without redness or drainage Thigh soft 5/5 Quadriceps, Tibialis Anterior, EHL, Gastroc, Soleus, Peroneals Normal sensation Palpable DT/PT, CR <2 sec No distal edema Results Result Diagram: 10/09/1643110/09/16431 BRANDON LIVINGSTON PA-C Oct 09, 2016 10:40
[2016-10-09] MEDS: SOD FERRIC GLUC COMPLX 125 MG in SOD CHLORIDE 0.9% 100 ML IVPB SCH (11:06)
[2016-10-09 14:28] VITALS: BP 110/55; RESP 16
[2016-10-09] MEDS: MAGNESIUM HYDROXIDE 30ML CUP PO PRN (17:58)
[2016-10-09 20:42] VITALS: BP 138/63; RESP 22
[2016-10-09] MEDS: METOPROLOL 25 MG TAB PO SCH (20:47)
[2016-10-09] MEDS ORDERED: ACETAMINOPHEN 325 MG TAB PO PRN (21:30)
[2016-10-09 22:00] VITALS: BP 128/70; PULSE 80
--- NOTE | 2016-10-09 23:41 | RADRPT ---
PROCEDURE: XR Chest. CLINICAL INDICATION: Fever. TECHNIQUE: Single frontal chest x-ray. COMPARISON: None. FINDINGS: The cardiomediastinal silhouette is unremarkable. Pulmonary vessels are top normal in caliber.. The re is patchy bibasilar atelectasis versus infiltrates.. There is no pleural effusion. There is no pneumothorax. The osseous structures are unremarkable. IMPRESSION: Pulmonary vessels top normal in caliber. Mild patchy bibasilar atelectasis versus infiltrates. RPTAT: HMVK .Ben De La Torre MD, Date Time Electronically viewed and signed by .Ben De La Torre MD, on 10/09/2016 23:40 .K/
[2016-10-10 00:10] VITALS: BP 117/68; PULSE 78
[2016-10-10] MEDS: LACTATED RINGER'S 1,000 ML IV SCH ×3 (02:12→16:55)
[2016-10-10 03:02] VITALS: BP 119/58; RESP 19
[2016-10-10] MEDS: PANTOPRAZOLE (EC) 40 MG TAB PO SCH ×2 (05:47→18:35)
[2016-10-10] MEDS: traMADol 50 MG TAB PO SCH ×3 (05:48→11:38)
[2016-10-10 06:10] LABS: BASOPHILS % 0.1 % (0.0-2.0); EOSINOPHILS % 0.3 % (0.0-7.0); HEMATOCRIT 25.3 % (37.0-47.0); HEMOGLOBIN 8.6 g/dl (12.0-16.0); LYMPHOCYTES # 1.1 10^3/ul (0.8-2.9); LYMPHOCYTES % 15.3 % (15.0-51.0); MEAN CORPUSCULAR HEMOGLOBIN 29.8 pg (29.0-33.0); MEAN CORPUSCULAR VOLUME 87.5 fl (82.0-101.0); MEAN PLATELET VOLUME 10.5 fl (7.4-10.4); NEUTROPHIL # 5.1 10^3/ul (1.6-7.5); NEUTROPHILS % 69.9 % (39.0-77.0); PLATELET COUNT 181 10^3/UL (140-415); RED BLOOD COUNT 2.89 10^6/ul (4.20-5.40); RED CELL DISTRIBUTION WIDTH 13.1 % (11.5-14.5); WHITE BLOOD COUNT 7.3 10^3/ul (4.8-10.8)
[2016-10-10 06:25] LABS: CALCIUM 8.5 mg/dl (8.4-10.2); CREATININE 0.85 mg/dl (0.44-1.00); POTASSIUM 3.4 mmol/L (3.5-5.1)
--- NOTE | 2016-10-10 08:26 | CONS ---
DATE OF ADMISSION: 10/07/2016 DATE OF CONSULTATION: 10/09/2016 REQUESTING PHYSICIAN: Nurse practitioner, Sarah singleton, from the hospital service. HISTORY OF PRESENT ILLNESS: Ms. Watson is a 76-year-old female with a history of anemia, dyslipidemia, hypertension, osteoarthritis of left knee. Patient subsequently was admitted and underwent total knee replacement by Dr. Merchant, on 10/07/2016. On 10/08/2016 the patient underwent a 2D echo interpreted by myself and had preserved left ventricular ejection of 60-65 percent, but with severe aortic stenosis with aortic valve area 0.9 and mean gradient of 45. Given these findings cardiac consult is requested. Patient at this time denies chest pain, shortness of breath, significant dizziness or syncope. Patient does complain of mild pain. PAST MEDICAL HISTORY: As above. MEDICATION: Currently in the hospital potassium 40 mg daily. Hydrochlorothiazide 50 mg daily. Aspirin 325 mg orally twice daily. . Colace 100 mg b.i.d., Lyrica, OxyContin, Tramadol as needed, Ancef. ALLERGIES: NO KNOWN DRUG ALLERGIES. SOCIAL HISTORY: No tobacco, EtOH or illicit drug use. FAMILY HISTORY: No history of sudden cardiac or early CAD. REVIEW OF SYSTEMS: As above in HPI. CONSTITUTIONAL: No fevers, chills. RESPIRATORY: No current shortness of breath. CARDIOVASCULAR: No current chest pain, pause of aortic stenosis. GASTROINTESTINAL: No vomiting. GENITOURINARY: No hematuria. MUSCULOSKELETAL: Left knee pain. PSYCH: No documented psych history. NEUROLOGIC: No documented history of CVA. PHYSICAL EXAMINATION: VITAL SIGNS: Temperature of 98.4, blood pressure 138/61, pulse 87. Oxygen saturation 98 percent. GENERAL: The patient is alert, awake. Complaining of mild knee pain. NECK: JVP approximately 8-9 cm of water. LUNGS: Fair air movement throughout. HEART: Regular rate and rhythm. Normal S1, S2. I/ systolic murmur. Nondisplaced PMI. ABDOMEN: Positive bowel sounds. Soft. EXTREMITIES: No edema. 1+ pulses bilateral posterior tibial. Knee covered by dressing. LABORATORY: As above and in HPI with most recently from today hemoglobin 8.4, sodium 141, potassium of 4.1, creatinine 0.9, BUN 16, LDL 56. HDL 39. TSH 1.6. UA negative. IMAGING STUDIES: Knee x-ray from 10/07/2016 revealing total knee arthroplasty in near anatomic alignment without acute radiographic abnormality. EKG: From 10/09/2016 revealed a normal sinus rhythm, rate 89, normal axis, normal intervals, with diffuse nonspecific ST-T abnormalities. . IMPRESSION: 1. Aortic stenosis. Severe by most recent echocardiogram of 10/08/2016. 2. Abnormal electrocardiogram, nonspecific ST abnormalities. Assess for acute coronary syndrome. The patient with no symptoms of chest pain at this time, status post-surgery. 3. Dyslipidemia with low HDL. 4. Hypertension. 5. Status post-total knee replacement. Total knee arthroplasty. 6. Anemia. RECOMMENDATIONS: 1. At this time, would check a follow up EKG to assess for any significant changes and troponin to assure the patient's EKG changes are chronic in nature, not due to any recent acute coronary syndromes, in the setting of postoperative state. 2. Continue patient's aspirin at this time. 3. Continue patient's benazepril but would initiate patient on beta-carlos for further blood pressure heart rate control, given severe aortic stenosis and thus fixed afterload at the valve orifice. 4. Continue patient's pain control. 5. We will continue the patient's hydrochlorothiazide at this time. We will consider discontinuing it, if necessary. 6. Physical therapy if possible. Thank you for allowing me to take part in this patient's care. I will continue to follow closely with you, further recommendations will be made during the patient hospital clinical course. Dictated By: Tete Chi /sd/sharon /Document#: [id number] AVELINO
[2016-10-10 08:34] VITALS: BP 117/58; RESP 19
[2016-10-10] MEDS: DOCUSATE SODIUM 100 MG CAP PO SCH ×2 (08:48→20:12)
[2016-10-10] MEDS: HYDROCHLOROTHIAZIDE 25 MG TAB PO SCH (08:48)
[2016-10-10] MEDS: BENAZEPRIL 40 MG TAB PO SCH (08:49)
[2016-10-10] MEDS: PREGABALIN 50 MG CAP PO SCH ×2 (08:49→20:12)
[2016-10-10] MEDS: METOPROLOL 25 MG TAB PO SCH ×2 (08:49→20:12)
[2016-10-10] MEDS: ASPIRIN (EC) 325 MG TAB PO SCH ×2 (08:49→20:12)
[2016-10-10 08:52] VITALS: BP 121/80; PULSE 82
--- NOTE | 2016-10-10 09:13 | PN ---
Date/Time of Note Date/Time of Note DATE: 10/10/16 TIME: 09:11 Assessment/Plan Lines/Catheters IV Catheter Type (from Nrsg): Peripheral IV [place] in Place (from Nrsg): No Assessment/Plan Assessment/Plan POD #3, s/p left TKA -fever overnight. Low suspicion for infectious etiology. Likely secondary to mild atelectasis -encouraged incentive spirometry -pain meds as needed -ASA/SCDs -OOB with PT -check AM labs -dressing changed -hold d/c until tomorrow if patient doing well Subjective 24 Hr Interval Summary Had a documented fever overnight. CBC, blood and urine cultures were ordered. Patient well appearing and states pain has improved overall. Has not been using her incentive spirometer. Exam/Review of Systems Vital Signs Vitals Vital Signs Date Time Temp Pulse Resp B/P Pulse Ox O2 Delivery O2 Flow Rate FiO2 10/10/16 08:52 82 121/80 10/10/16 08:34 98.7 19 93 10/09/16 22:00 Room Air 10/08/16 00:30 2.0 Intake and Output 10/09/16 10/09/16 10/10/16 14:59 22:59 06:59 Intake Total 110 ml 1280 ml 700 ml Output Total 1000 ml Balance 110 ml 1280 ml -300 ml Exam Free Text/Dictation Dressing dry Incision clean, dry, and intact without redness or drainage Thigh soft 5/5 Quadriceps, Tibialis Anterior, EHL, Gastroc, Soleus, Peroneals Normal sensation Palpable DT/PT, CR <2 sec No distal edema Results Result Diagram: 10/10/16 0428 10/10/16 0429 BRANDON LIVINGSTON PA-C Oct 10, 2016 09:13
[2016-10-10 09:31] LABS: ADD UMIC YES; UR ASCORBIC ACID NEGATIVE (NEGATIVE); UR BILIRUBIN (Dip) NEGATIVE (NEGATIVE); UR BLOOD (Dip) 1+ mg/dL (NEGATIVE); UR CLARITY CLEAR (CLEAR); UR COLOR YELLOW (YELLOW); UR GLUCOSE (Dip) NEGATIVE (NEGATIVE); UR KETONES (Dip) NEGATIVE (NEGATIVE); UR LEUKOCYTE ESTERASE (Dip) NEGATIVE Leu/ul (NEGATIVE); UR NITRITE (Dip) NEGATIVE (NEGATIVE); UR RBC 0 /HPF (0-5); UR SPECIFIC GRAVITY (Dip) 1.012 (1.003-1.030); UR TOTAL PROTEIN (Dip) NEGATIVE (NEGATIVE); UR UROBILINOGEN (Dip) NEGATIVE (NEGATIVE)
[2016-10-10] MEDS: SOD FERRIC GLUC COMPLX 125 MG in SOD CHLORIDE 0.9% 100 ML IVPB SCH (11:37)
[2016-10-10] MEDS: MAGNESIUM HYDROXIDE 30ML CUP PO PRN (11:58)
--- NOTE | 2016-10-10 13:29 | CONS ---
Date/Time of Note Date/Time of Note DATE: 10/10/16 TIME: 13:25 Assessment/Plan Assessment/Plan Chief Complaint/Hosp Course IMPRESSION: 1. Aortic stenosis. Severe by most recent echocardiogram of 10/08/2016. 2. Abnormal electrocardiogram, nonspecific ST abnormalities. Assess for acute coronary syndrome. The patient with no symptoms of chest pain at this time, status post-surgery. 3. Dyslipidemia with low HDL. 4. Hypertension-well controlled 5. Status post-total knee replacement. Total knee arthroplasty. 6. Anemia. Recc: -Continue current asa/benazepril/metoprolol -Follow volume status clsoely -further outpatient eval of severe , given my contact info to schedule f/u appt Problems: Consultation Date/Type/Reason Admit Date/Time Oct 07, 2016 at 12:16 Initial Consult Date 10/09/2016 Type of Consultation: cardiology Reason for Consultation Referring Provider: ЕКАТЕРИНА OLIVEROS MD Exam/Review of Systems Vital Signs Vitals Vital Signs Date Time Temp Pulse Resp B/P Pulse Ox O2 Delivery O2 Flow Rate FiO2 10/10/16 08:52 82 121/80 10/10/16 08:34 98.7 19 93 10/09/16 22:00 Room Air 10/08/16 00:30 2.0 Intake and Output 10/09/16 10/09/16 10/10/16 15:00 23:00 07:00 Intake Total 110 ml 1280 ml 700 ml Output Total 1000 ml Balance 110 ml 1280 ml -300 ml Exam Review of Systems: CONSTITUTIONAL: No fevers, chills. PULMONARY: No sob CARDIOVASCULAR: No chest pain/palpitations GASTROINTESTINAL: No nausea/vomiting. GENITOURINARY: No hematuria/dysuria. MUSCULOSKELETAL: pain in knee PSYCHIATRIC: The patient denies depression. NEUROLOGIC: No weakness Constitutional: alert Psych: no complaints Head: normocephalic ENMT: mucosa pink and moist Neck: jvd (9 cm water), supple Respiratory: clear to auscultation Cardiovascular: regular rate and rhythm Gastrointestinal: non-tender, soft Musculoskeletal: muscle tone (normal), other (L knee covered by dressing) Extremities: other (none) Neurological: other (No focal deficits) Results Result Diagram: 10/10/16 0428 10/10/16 0429 Results 24 hrs Laboratory Tests Test 10/09/16 14:20 10/09/16 17:55 10/09/16 20:51 10/09/16 22:15 B-Type Natriuretic Peptide 1530 H Troponin I 0.016 Bedside Glucose 139 Urine Color YELLOW Urine Clarity CLEAR Urine pH 6.0 Urine Specific [place] 1.012 Urine Ketones NEGATIVE Urine Nitrite NEGATIVE Urine Bilirubin NEGATIVE Urine Urobilinogen NEGATIVE Urine Leukocyte Esterase NEGATIVE Urine Microscopic RBC 0 Urine Microscopic WBC 1 Urine Hemoglobin 1+ H Urine Glucose NEGATIVE Urine Total Protein NEGATIVE Test 10/10/16 00:36 10/10/16 04:28 10/10/16 04:29 Troponin I 0.025 White Blood Count 7.3 Red Blood Count 2.89 L Hemoglobin 8.6 L Hematocrit 25.3 L Mean Corpuscular Volume 87.5 Mean Corpuscular Hemoglobin 29.8 Mean Corpuscular Hemoglobin Concent 34.0 Red Cell Distribution Width 13.1 Platelet Count 181 Mean Platelet Volume 10.5 H Neutrophils % 69.9 Lymphocytes % 15.3 Monocytes % 14.0 H Eosinophils % 0.3 Basophils % 0.1 Nucleated Red Blood Cells % 0.0 Neutrophils # 5.1 Lymphocytes # 1.1 Monocytes # 1.0 H Eosinophils # 0.0 Basophils # 0.0 Nucleated Red Blood Cells # 0.0 Sodium Level 136 Potassium Level 3.4 L Chloride Level 91 L Carbon Dioxide Level 33 H Anion Gap 15 Blood Urea Nitrogen 11 Creatinine 0.85 Glucose Level 107 Calcium Level 8.5 Medications Medications Current Medications Miscellaneous Information 1 ea NOTE XX ; Start 10/07/16 at 15:00; Stop 10/10/16 at 15:01 Benazepril HCl (Lotensin) 40 mg DAILY PO Last administered on 10/10/16 08:49; Admin Dose 40 MG; Start 10/08/16 at 09:00 Hydrochlorothiazide (Hydrochlorothiazide) 25 mg DAILY PO Last administered on 08:48; Admin Dose 25 MG; Start 10/08/16 at 09:00 Oxycodone HCl (Oxycontin) 10 mg PRE-OP PO ; Start 10/07/16 at 18:30 Pregabalin (Lyrica) 300 mg PRE-OP PO ; Start 10/07/16 at 18:30 Celecoxib (Celebrex) 400 mg PRE-OP PO ; Start 10/07/16 at 18:30 Tramadol HCl (Ultram) 50 mg PRE-OP PO ; Start 10/07/16 at 18:30 Ondansetron HCl 4 mg 4 mg PRE-OP IV Last administered on 10/07/16 20:20; Admin Dose 4 MG; Start 10/07/16 at 18:30 Lactated Ringer's (Lr) 1,000 ml @ 125 mls/hr Q8H IV Last administered on 05:55; Admin Dose 125 MLS/HR; Start 10/07/16 at 18:12 Hydromorphone HCl (Dilaudid) 1 mg Q3H PRN IV PAIN LEVEL 8-10; Start 10/07/16 at 18:30 Ondansetron HCl (Zofran Inj) 4 mg Q6H PRN IV NAUSEA AND/OR VOMITING; Start 10/07 at 18:30 Bisacodyl (Dulcolax Supp) 10 mg Q12H PRN [place] CONSTIPATION; Start 10/07/16 at 18: 30 Magnesium Hydroxide (Milk Of Mag) 30 ml BID PRN PO CONSTIPATION Last administered on 10/10/16 11:58; Admin Dose 30 ML; Start 10/07/16 at 18:30 Sodium Biphosphate/ Sodium Phosphate (Fleet Enema) 133 ml DAILY PRN [place] CONSTIPATION; Start 10/07/16 at 18:30 Docusate Sodium (Colace) 100 mg BID PO Last administered on 10/10/16 08:48; Admin Dose 100 MG; Start 10/07/16 at 21:00 Diphenhydramine HCl (Benadryl) 25 mg Q6H PRN PO PRURITUS; Start 10/07/16 at 18: 30 Acetaminophen/ Hydrocodone Bitart ([place] (7.5-325)) 1 tab Q4H PRN PO PAIN LEVEL 1-3; Start 10/07/16 at 18:30 Acetaminophen/ Hydrocodone Bitart ([place] (7.5-325)) 2 tab Q4H PRN PO PAIN LEVEL 4-7 Last administered on 10/09/16 09:16; Admin Dose 2 TAB; Start 10/07/16 at 18:30 Aspirin (Ecotrin) 325 mg BID PO Last administered on 10/10/16 08:49; Admin Dose 325 MG; Start 10/08/16 at 09:00 Pantoprazole (Protonix Tab) 40 mg BID@06,18 PO Last administered on 10/10/16 05:47; Admin Dose 40 MG; Start 10/08/16 at 06:00 Pregabalin 50 mg 50 mg BID PO Last administered on 10/10/16 08:49; Admin Dose 50 MG; Start 10/07/16 at 21:00 Ferric Sodium Gluconate Complex/ Sodium Chloride (Ferrlecit/NS) 110 ml @ 100 mls/hr Q24H IVPB Last administered on 10/10/16 11:37; Admin Dose 100 MLS/HR; Start 10/09/16 at 11:00; Stop 10/11/16 at 12:05 Metoprolol Tartrate (Lopressor) 25 mg BID PO Last administered on 10/10/16 08: 49; Admin Dose 25 MG; Start 10/09/16 at 21:00 Acetaminophen (Tylenol Tab) 650 mg Q6H PRN PO PAIN AND OR ELEVATED TEMP Last administered on 10/09/16 22:22; Admin Dose 650 MG; Start 10/09/16 at 21:30 JAIMEE SZYMANSKI Oct 10, 2016 13:29
--- NOTE | 2016-10-10 15:17 | CONS ---
Date/Time of Note Date/Time of Note DATE: 10/10/16 TIME: 15:14 Assessment/Plan Assessment/Plan Chief Complaint/Hosp Course 1. Osteoarthritis, status post left total knee arthroplasty, POD #2. -Postoperative antibiotics, pain control and anticoagulation per surgery. 2. Essential hypertension. Stable. -Continue PASCALE inhibitor/beta blockers 3. Dyslipidemia. -On statin. 4. Severe aortic stenosis. -Status post cardiology evaluation and recommended outpatient follow-up. 5. 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 Stable. -On IV iron replacement while inpatient. This can be changed to oral once discharge. Plan: Discharge planning for tomorrow. Recommend oral iron with stool softeners upon discharge. Thank you for allowing us to partake in the care of this pleasant lady. If you have any questions, please call us at extension [phone]. Case discussed with Dr. Feliciano Problems: Consultation Date/Type/Reason Admit Date/Time Oct 07, 2016 at 12:16 Initial Consult Date Type of Consultation: cardiology Referring Provider: ЕКАТЕРИНА OLIVEROS MD 24 HR Interval Summary Free Text/Dictation Patient had low-grade fever. No leukocytosis. Exam/Review of Systems Vital Signs Vitals Vital Signs Date Time Temp Pulse Resp B/P Pulse Ox O2 Delivery O2 Flow Rate FiO2 10/10/16 08:52 82 121/80 10/10/16 08:34 98.7 19 93 10/09/16 22:00 Room Air 10/08/16 00:30 2.0 Intake and Output 10/09/16 10/09/16 10/10/16 15:00 23:00 07:00 Intake Total 110 ml 1280 ml 700 ml Output Total 1000 ml Balance 110 ml 1280 ml -300 ml Exam General: Well developed,adequately built, not in any acute distress . HEENT: Normocephalic, Atraumatic, No laceration or hematoma; Eyes: PEERL, Conjunctiva clear, Anicteric sclera Neck: Supple without any lymphadenopathy, nontender, no JVD, no carotid bruits, trachea midline, no thyromegaly Cardiac: Systolic murmur grade V/ heard at right and left second ICS and mid clavicular line. regular rhythm and rate Pulmonary: Normal respiratory effort. Chest clear to auscultation bilaterally, no adventitious breath sounds GI: Abdomen normal to inspection. Soft, non tender, non- distended, no masses, no rebound tenderness or guarding. Bowel sounds active on all four quadrants Genitourinary: Deferred Extremities: Left knee with dressing intact. No cyanosis, clubbing, or edema. Pulses [2+] bilaterally. Range of motion decreased on left lower extremity. No focal weakness appreciated. Neurologic: Alert to person, place, time, and situation. Affect appropriate, intact sensation. Skin: Clean,dry, and intact. No ecchymosis, no rashes, or lesions Results Result Diagram: 10/10/16 0428 10/10/16 0429 Results 24 hrs Laboratory Tests Test 10/09/16 17:55 10/09/16 20:51 10/09/16 22:15 10/10/16 00:36 Troponin I 0.016 0.025 Bedside Glucose 139 Urine Color YELLOW Urine Clarity CLEAR Urine pH 6.0 Urine Specific [place] 1.012 Urine Ketones NEGATIVE Urine Nitrite NEGATIVE Urine Bilirubin NEGATIVE Urine Urobilinogen NEGATIVE Urine Leukocyte Esterase NEGATIVE Urine Microscopic RBC 0 Urine Microscopic WBC 1 Urine Hemoglobin 1+ H Urine Glucose NEGATIVE Urine Total Protein NEGATIVE Test 10/10/16 04:28 10/10/16 04:29 White Blood Count 7.3 Red Blood Count 2.89 L Hemoglobin 8.6 L Hematocrit 25.3 L Mean Corpuscular Volume 87.5 Mean Corpuscular Hemoglobin 29.8 Mean Corpuscular Hemoglobin Concent 34.0 Red Cell Distribution Width 13.1 Platelet Count 181 Mean Platelet Volume 10.5 H Neutrophils % 69.9 Lymphocytes % 15.3 Monocytes % 14.0 H Eosinophils % 0.3 Basophils % 0.1 Nucleated Red Blood Cells % 0.0 Neutrophils # 5.1 Lymphocytes # 1.1 Monocytes # 1.0 H Eosinophils # 0.0 Basophils # 0.0 Nucleated Red Blood Cells # 0.0 Sodium Level 136 Potassium Level 3.4 L Chloride Level 91 L Carbon Dioxide Level 33 H Anion Gap 15 Blood Urea Nitrogen 11 Creatinine 0.85 Glucose Level 107 Calcium Level 8.5 Medications Medications Current Medications Benazepril HCl (Lotensin) 40 mg DAILY PO Last administered on 10/10/16 08:49; Admin Dose 40 MG; Start 10/08/16 at 09:00 Hydrochlorothiazide (Hydrochlorothiazide) 25 mg DAILY PO Last administered on 08:48; Admin Dose 25 MG; Start 10/08/16 at 09:00 Oxycodone HCl (Oxycontin) 10 mg PRE-OP PO ; Start 10/07/16 at 18:30 Pregabalin (Lyrica) 300 mg PRE-OP PO ; Start 10/07/16 at 18:30 Celecoxib (Celebrex) 400 mg PRE-OP PO ; Start 10/07/16 at 18:30 Tramadol HCl (Ultram) 50 mg PRE-OP PO ; Start 10/07/16 at 18:30 Ondansetron HCl 4 mg 4 mg PRE-OP IV Last administered on 10/07/16 20:20; Admin Dose 4 MG; Start 10/07/16 at 18:30 Lactated Ringer's (Lr) 1,000 ml @ 125 mls/hr Q8H IV Last administered on 05:55; Admin Dose 125 MLS/HR; Start 10/07/16 at 18:12 Hydromorphone HCl (Dilaudid) 1 mg Q3H PRN IV PAIN LEVEL 8-10; Start 10/07/16 at 18:30 Ondansetron HCl (Zofran Inj) 4 mg Q6H PRN IV NAUSEA AND/OR VOMITING; Start 10/07 at 18:30 Bisacodyl (Dulcolax Supp) 10 mg Q12H PRN [place] CONSTIPATION; Start 10/07/16 at 18: 30 Magnesium Hydroxide (Milk Of Mag) 30 ml BID PRN PO CONSTIPATION Last administered on 10/10/16 11:58; Admin Dose 30 ML; Start 10/07/16 at 18:30 Sodium Biphosphate/ Sodium Phosphate (Fleet Enema) 133 ml DAILY PRN [place] CONSTIPATION; Start 10/07/16 at 18:30 Docusate Sodium (Colace) 100 mg BID PO Last administered on 10/10/16 08:48; Admin Dose 100 MG; Start 10/07/16 at 21:00 Diphenhydramine HCl (Benadryl) 25 mg Q6H PRN PO PRURITUS; Start 10/07/16 at 18: 30 Acetaminophen/ Hydrocodone Bitart ([place] (7.5-325)) 1 tab Q4H PRN PO PAIN LEVEL 1-3; Start 10/07/16 at 18:30 Acetaminophen/ Hydrocodone Bitart ([place] (7.5-325)) 2 tab Q4H PRN PO PAIN LEVEL 4-7 Last administered on 10/09/16 09:16; Admin Dose 2 TAB; Start 10/07/16 at 18:30 Aspirin (Ecotrin) 325 mg BID PO Last administered on 10/10/16 08:49; Admin Dose 325 MG; Start 10/08/16 at 09:00 Pantoprazole (Protonix Tab) 40 mg BID@06,18 PO Last administered on 10/10/16 05:47; Admin Dose 40 MG; Start 10/08/16 at 06:00 Pregabalin 50 mg 50 mg BID PO Last administered on 10/10/16 08:49; Admin Dose 50 MG; Start 10/07/16 at 21:00 Ferric Sodium Gluconate Complex/ Sodium Chloride (Ferrlecit/NS) 110 ml @ 100 mls/hr Q24H IVPB Last administered on 10/10/16 11:37; Admin Dose 100 MLS/HR; Start 10/09/16 at 11:00; Stop 10/11/16 at 12:05 Metoprolol Tartrate (Lopressor) 25 mg BID PO Last administered on 10/10/16 08: 49; Admin Dose 25 MG; Start 10/09/16 at 21:00 Acetaminophen (Tylenol Tab) 650 mg Q6H PRN PO PAIN AND OR ELEVATED TEMP Last administered on 10/09/16 22:22; Admin Dose 650 MG; Start 10/09/16 at 21:30 GUILLE MARSH NP Oct 10, 2016 15:17
[2016-10-10 15:39] VITALS: BP 116/57; RESP 19
[2016-10-10 19:55] VITALS: BP 118/56; RESP 22
[2016-10-11] MEDS: LACTATED RINGER'S 1,000 ML IV SCH (02:12)
[2016-10-11 03:52] VITALS: BP 118/53; RESP 20
[2016-10-11 05:54] LABS: HEMATOCRIT 25.6 % (37.0-47.0); HEMOGLOBIN 8.3 g/dl (12.0-16.0)
[2016-10-11 05:55] LABS: CALCIUM 8.6 mg/dl (8.4-10.2); CREATININE 0.87 mg/dl (0.44-1.00); POTASSIUM 3.4 mmol/L (3.5-5.1)
[2016-10-11] MEDS: PANTOPRAZOLE (EC) 40 MG TAB PO SCH (06:26)
[2016-10-11 07:51] VITALS: BP 113/54; RESP 20
[2016-10-11] MEDS: METOPROLOL 25 MG TAB PO SCH (08:21)
[2016-10-11] MEDS: ASPIRIN (EC) 325 MG TAB PO SCH (08:21)
[2016-10-11] MEDS: PREGABALIN 50 MG CAP PO SCH (08:21)
[2016-10-11] MEDS: DOCUSATE SODIUM 100 MG CAP PO SCH (08:21)
[2016-10-11] MEDS: BENAZEPRIL 40 MG TAB PO SCH (09:00)
[2016-10-11] MEDS: HYDROCHLOROTHIAZIDE 25 MG TAB PO SCH (09:00)
[2016-10-11] MEDS: SOD FERRIC GLUC COMPLX 125 MG in SOD CHLORIDE 0.9% 100 ML IVPB SCH (11:00)
--- NOTE | 2016-10-11 11:20 | RADRPT ---
Vent Rate: 89 bpm RR Interval: 0 msec HI Interval: 166 msec QRS Duration: 80 msec QT Interval: 368 msec QTC Interval: 447 msec P-R-T [place]: 89 - 59 - -17 degrees Normal sinus rhythm Septal infarct , age undetermined Abnormal ECG Electronically Signed By: Reinaldo Coronado [id number]
--- NOTE | 2016-10-11 11:21 | RADRPT ---
Vent Rate: 74 bpm RR Interval: 0 msec IN Interval: 208 msec QRS Duration: 84 msec QT Interval: 414 msec QTC Interval: 459 msec P-R-T [place]: 63 - 55 - 26 degrees Normal sinus rhythm Normal ECG Electronically Signed By: Reinaldo Coronado [id number]
--- NOTE | 2016-10-11 11:31 | PN ---
Date/Time of Note Date/Time of Note DATE: 10/11/16 TIME: 11:30 Assessment/Plan Lines/Catheters IV Catheter Type (from Nrsg): Saline Lock [place] in Place (from Nrsg): No Assessment/Plan Assessment/Plan POD # 4. Stable. -D/C to home today -Home PT -Pain meds -ASA/SCDs -F/u with me in 1 week Subjective 24 Hr Interval Summary Doing well. Pain well controlled. Afebrile x last 24 hours. Walked with PT. Wants to go home. Family at bedside. Exam/Review of Systems Vital Signs Vitals Vital Signs Date Time Temp Pulse Resp B/P Pulse Ox O2 Delivery O2 Flow Rate FiO2 10/11/16 07:51 97.8 89 20 113/54 100 10/09/16 22:00 Room Air 10/08/16 00:30 2.0 Intake and Output 10/10/16 10/10/16 10/11/16 15:00 23:00 07:00 Intake Total 110 ml 840 ml 1400 ml Output Total 5 ml 1450 ml Balance 110 ml 835 ml -50 ml Exam Free Text/Dictation Dressing dry Incision clean, dry, and intact without redness or drainage 5/5 Tibialis Anterior, EHL, Gastroc Soleus, Peroneals Normal sensation Palpable DP/PT, CR < 2 Sec No distal edema Results Result Diagram: 10/11/163 10/11/16442 NHUNG DENG MD Oct 11, 2016 11:31
--- NOTE | 2016-10-11 13:23 | CONS ---
Date/Time of Note Date/Time of Note DATE: 10/11/16 TIME: 13:22 Consult Date/Type/Reason Admit Date/Time Oct 07, 2016 at 12:16 Initial Consult Date Type of Consultation: Internal medicine Ordering Provider: ЕКАТЕРИНА OLIVEROS MD Subjective Doing well today no events. Ambulating with walker. Objective Vital Signs Date Time Temp Pulse Resp B/P Pulse Ox O2 Delivery O2 Flow Rate FiO2 10/11/16 07:51 97.8 89 20 113/54 100 10/09/16 22:00 Room Air 10/08/16 00:30 2.0 Intake and Output 10/10/16 10/10/16 10/11/16 15:00 23:00 07:00 Intake Total 110 ml 840 ml 1400 ml Output Total 5 ml 1450 ml Balance 110 ml 835 ml -50 ml Exam GENERAL: Well-nourished well-developed lady comfortable at rest VITAL SIGNS: per chart NECK: Supple. No JVD or lymphadenopathy. CARDIAC EXAM: S1, S2. Systolic ejection murmur 2 out of 6 CHEST: clear bilaterally, No added sounds, rales or wheezes ABDOMEN: Soft, nontender. No guarding or rebound. EXTREMITIES: No cyanosis, clubbing or edema. NEUROLOGIC: Generalized weakness. No focal deficits. Results/Medications Result Diagram: 10/11/1644210/11/16442 Results 24 hrs Laboratory Tests Test 10/11/16 04:43 Hemoglobin 8.3 L Hematocrit 25.6 L Sodium Level 140 Potassium Level 3.4 L Chloride Level 93 L Carbon Dioxide Level 34 H Anion Gap 16 Blood Urea Nitrogen 12 Creatinine 0.87 Glucose Level 111 Calcium Level 8.6 Assessment/Plan Chief Complaint/Hosp Course Chief Complaint/Hosp Course 1. Osteoarthritis, status post left total knee arthroplasty, POD #4 -Doing well from orthopedic standpoint stable for discharge today 2. Essential hypertension. Stable. -Continue PASCALE inhibitor/beta blockers 3. Dyslipidemia. -On statin. 4. Severe aortic stenosis. -Status post cardiology evaluation and recommended outpatient follow-up. Discharge home today PT Follow-up orthopedic and primary care physician Problems: OANH COHN MD, [facility] Oct 11, 2016 13:23
--- NOTE | 2016-10-13 09:03 | DS ---
Date/Time of Note Date/Time of Note DATE: 10/13/16 TIME: 09:01 Discharge Summary Admission/Discharge Info Admit Date/Time Oct 07, 2016 at 12:16 Discharge Date/Time Oct 11, 2016 at 12:17 Discharge Diagnosis s/p left TKA Patient Condition: Good Procedures Left total knee arthroplasty Hospital Course This is a 76-year-old female, who was seen in the clinic initially complaining of left knee pain. X-rays demonstrated advanced osteoarthritis of the left knee , and is thought she would benefit from a left total knee arthroplasty. On 2016, the patient was admitted and taken to the operating room, where she underwent a left total knee arthroplasty. There were no intraoperative complications. The patient tolerated the procedure well. She was taken to recovery room in stable condition. Pain was well-controlled oral pain medication. She was started on aspirin and SCDs for DVT prophylaxis. She remained hemodynamically stable and neurovascularly intact distally. She began physical therapy on postoperative day 1 and continues to make good progress. Ultimately she was deemed stable for discharge home on postoperative day 4. Prior to discharge, the incision was inspected and noted to be clean, dry, and intact. Dressing changes were done prior to patient going home. DISCHARGE INSTRUCTIONS: The patient be discharged home in stable condition. She is to resume her normal diet. She is weightbearing as tolerated on left lower extremity. She will begin physical therapy with home health. She was discharged home with a medication noted, and is to resume all of her normal home medication. She is to call the office or go to the emergency room for any concerns including increased redness, swelling, drainage, fever, or any concerns regarding the operation or site of incision. Home Meds Active Scripts Hydrocodone/Acetaminophen (Hydrocodon-Acetaminoph 7.5-325) 1 Each Tablet, 1 TAB PO Q4H Y for PAIN LEVEL 1-3 for 30 Days, #60 TAB Prov:BRANDON LIVINGSTON PA-C 10/08/16 Pantoprazole* (Pantoprazole*) 40 Mg Tablet.dr, 40 MG PO BID@06,18 for 30 Days, # 60 Prov:BRANDON LIVINGSTON PA-C 10/08/16 Pregabalin* (Lyrica*) 50 Mg Capsule, 50 MG PO BID for 30 Days, #60 CAP Prov:BRANDON LIVINGSTON PA-C 10/08/16 Tramadol HCl (Tramadol HCl) 50 Mg Tablet, 50 MG PO Q6 for 30 Days, #60 TAB Prov:BRANDON LIVINGSTON PA-C 10/08/16 Aspirin (Aspir-Jesica) 325 Mg Tablet.dr, 325 MG PO BID for 40 Days, #80 Prov:BRANDON LIVINGSTON PA-C 10/08/16 Mineral Oil/Petrolatum,White (ARTIFICIAL TEARS EYE OINT) 3.5 Gm Oint...g., 1 APPLIC LEFT EYE NEEDED Y for DRY EYES for 14 Days, #1 EA Prov:AVRIL CRUZ MD 07/31/16 Reported Medications Benazepril Hcl* (Benazepril Hcl*) 40 Mg Tablet, 40 MG PO DAILY, #30 TAB 07/25/15 Hydrochlorothiazide* (Hydrochlorothiazide*) 25 Mg Tab, 25 MG PO DAILY, #30 TAB 07/25/15 Follow-up Plan Follow-up in the office on 10/17/2016 Primary Care Provider Perez Christian Pending Labs Laboratory Tests Test 10/12/16 10:46 Lab Scanned Report REFERENCE [id number] BRANDON LIVINGSTON PA-C Oct 13, 2016 09:03
== END 2016-10-11 12:17 | disposition home health service (06) | DRG 470 ==
LOC: REC 12:16 → MS1 20:42
PROVIDERS: ADMIT Orthopaedic Surgery; ATTEND Orthopaedic Surgery
PROC: 0SRD0J9 Replacement of Left Knee Joint with Synthetic Substitute, Cemented, Open Approach (ICD-10-PCS; principal; 2016-10-07 16:00)
DX: M17.12 Unilateral primary osteoarthritis, left knee (principal); D62 Acute posthemorrhagic anemia; I35.0 Nonrheumatic aortic (valve) stenosis; D50.9 Iron deficiency anemia, unspecified; I10 Essential (primary) hypertension; E78.00 Pure hypercholesterolemia, unspecified; E78.5 Hyperlipidemia, unspecified
CPT/HCPCS: 71010; 73560; 80048; 80061; 80076; 81001; 82962; 83036; 83540; 83880; 84443; 84484; 85014; 85018; 85025; 86850; 86900; 86901; 86920; 87040; 87086; 88304; 88311; 93005; 93306; 97110; 97116; 97162; 97166; 97530; 97535; C1776; J0690; J1100; J2250; J2405; J2710; J2916; J3010; J3370; J7120

== ENCOUNTER → 2016-10-17 | Outpatient (CLI) | payer BC ==
[~2016-10-17] MED LIST changes: +ASPI325T32 PO; -DESFLURANE 15 MIN ONE; +HYDR-3605 PO; +PANT40TA4 PO; +PREG50CA PO; +TRAM50TA2 PO
--- NOTE | 2016-10-17 10:02 | PN ---
Date/Time of Note Date/Time of Note DATE: 10/17/16 TIME: 09:59 Assessment/Plan VTE Prophylaxis VTE Prophylaxis Intervention: ambulation, other Assessment/Plan Assessment/Plan Assessment: 10 days status post left total knee arthroplasty Plan: The vince removed today, and Steri-Strips were applied. She is to continue physical therapy with home health and transition to outpatient physical therapy program. Additionally she is to continue aspirin 325 mg twice daily for DVT prophylaxis. We will see her back in 4 weeks for repeat evaluation. She is to call the office in the meantime if she has any concerns. Subjective 24 Hr Interval Summary Free Text/Dictation The patient presents today for her first postoperative evaluation. She is now 10 days status post left total knee arthroplasty. She is doing well overall. She is at home and doing physical therapy with home health. She denies any fevers or chills. She is taking aspirin twice daily for DVT prophylaxis. Her pain is improving and she is using pain medication very sparingly at this point. She presents today for her first postoperative evaluation. Exam/Review of Systems Exam On exam today, she is alert and oriented 4, in no acute distress. Exam of the left knee demonstrates the incision to be clean, dry, and intact. She is ambulating with a front wheel walker although can ambulate without an assistive device. There is no erythema, warmth, pus, or drainage noted. Range of motion is 0-90. Varus and valgus forces are stable. Compartments are soft. Homans sign is negative. She is neurovascular intact distally. Imaging: X-rays of the left knee were obtained today and reviewed by me. They demonstrate the prosthesis to be in good alignment with no fractures or dislocations identified BRANDON LIVINGSTON PA-C Oct 17, 2016 10:02
--- NOTE | 2016-10-17 16:28 | RADRPT ---
PROCEDURE: XR Knee. CLINICAL INDICATION: Pain. TECHNIQUE: Left knee x-rays, 2 views. COMPARISON: 10/07/2016. FINDINGS: Bone density appears normal. Bony cortices are intact. Knee arthroplasty hardware is in place and intact. Alignment is well maintained. The knee joint is intact. Diffuse soft tissue edema is obse rved. Postoperative vince project over the right side of the knee. IMPRESSION: Surgical changes compatible with right knee arthroplasty. RPTAT: [facility] .Leigh Marcus MD, Date Time Electronically viewed and signed by .Leigh Marcus MD, MD on 10/17/2016 16:28 .T/
== END | disposition home or self-care (01) ==
LOC: HKI 09:12
PROVIDERS: ATTEND Orthopaedic Surgery
DX: Z47.1 Aftercare following joint replacement surgery (principal); Z96.652 Presence of left artificial knee joint

== ENCOUNTER → 2017-03-03 | Outpatient (CLI) | END | disposition home or self-care (01) ==

== ENCOUNTER → 2017-05-25 | Outpatient (CLI) | END | disposition home or self-care (01) ==

== ENCOUNTER 2017-05-27 06:15 | Inpatient (IN) | END 2017-05-30 17:10 | DRG 470 ==

== ENCOUNTER → 2017-06-12 | Outpatient (CLI) | END | disposition home or self-care (01) ==

== ENCOUNTER → 2017-07-17 | Outpatient (CLI) | END | disposition home or self-care (01) ==

== ENCOUNTER → 2017-12-07 | Outpatient (CLI) | END | disposition home or self-care (01) ==